=== PATIENT | male | born 1955 | race Caucasian/White ===

== ENCOUNTER 2016-08-15 12:52 | Emergency (ER) | payer OTHER ==
[2016-08-15 12:52] VITALS: BMI 25.1
[2016-08-15 13:01] VITALS: TEMP 98.1
--- NOTE | 2016-08-15 14:54 | C.PDOC ---
History Of Present Illness 61 year old male was brought to the ED by EMS with complaints of left neck, shoulder, and back pain after an unhinged door fell on him at work just prior to arrival. 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 He notes losing consciousness and being moved by EMS from the scene. Patient's PMD is Dr. Herbert and has history of HTN. Patient denies any fever or other complaints at this time. Time Seen by Provider: 08/15/16 13:08 Chief Complaint (Nursing): Back Pain History Per: Patient History/Exam Limitations: no limitations Onset/Duration Of Symptoms: Mins (just prior to arrival ) Current Symptoms Are (Timing): Still Present Quality Of Discomfort: "Pain" Previous Symptoms: None Associated Symptoms: None Recent travel outside of the [place]: No Additional History Per: EMS Past Medical History Reviewed: Historical Data, Nursing Documentation, Vital Signs Vital Signs: Last Vital Signs Temp 98.1 F 08/15/16 12:57 Pulse 69 08/15/16 18:25 Resp 15 08/15/16 18:25 BP 170/90 H 08/15/16 18:25 Pulse Ox 96 08/17/16 04:18 - Medical History PMH: HTN (doesn't remember the medications he takes) Family History: States: Unknown Family Hx - Social History Hx Alcohol Use: No Hx Substance Use: No - Immunization History Hx Tetanus Toxoid Vaccination: No Hx Influenza Vaccination: No Hx Pneumococcal Vaccination: No Review Of Systems Constitutional: Negative for: Fever, Chills, Sweats Cardiovascular: Negative for: Chest Pain, Palpitations Respiratory: Negative for: Cough, Shortness of Breath Gastrointestinal: Negative for: Nausea, Vomiting, Abdominal Pain, Diarrhea Musculoskeletal: Positive for: Neck Pain (left sided ), Shoulder Pain (left sided), Back Pain (bilateral flank pain ) Skin: Negative for: Rash, Bruising Neurological: Positive for: Headache (patient states "little bit of headache" ) Physical Exam - Physical Exam Appears: Non-toxic, No Acute Distress Skin: Warm, Dry, Other (2cm abrasion to right shoulder ) Head: Atraumatic, Normacephalic, No Tenderness, No Swelling, No Abrasion, No Laceration Eye(s): bilateral: Normal Inspection Ear(s): Bilateral: Normal, Other (No hemotympanum ) Oral Mucosa: Moist Teeth: Normal Dentition Neck: Trachea Midline, Midline Cervical Tenderness Chest: Symmetrical, No Deformity, No Tenderness Cardiovascular: Rhythm Regular, No Murmur Respiratory: Normal Breath Sounds, No Rales, No Rhonchi, No Wheezing Gastrointestinal/Abdominal: Soft, No Tenderness, No Distention, No Guarding, No Rebound Back: Normal Inspection, Paraspinal Tenderness (lumbar area bilateral) Extremity: Normal ROM, No Tenderness, No Pedal Edema, No Calf Tenderness, Capillary Refill (good cap), No Swelling Pulses: Left Femoral: Normal, Right Femoral: Normal Neurological/Psych: Oriented x3, Normal Speech, Normal Cognition, Normal Cranial Nerves, Normal Motor, Normal Sensation ED Course And Treatment O2 Sat by Pulse Oximetry: 96 (room air ) - Other Rad Lumbar Spine Three View X-Ray: Viewed By Me, Read By Radiologist Interpretation: COMPARISON: None available. TECHNIQUE: Three views of the lumbar spine were performed. FINDINGS: Moderate multilevel degenerative disc disease is noted. No acute compression fracture is seen. No obvious malalignment is noted. Degenerate facet changes are also seen in the lower lumbar spine region. No significant scoliosis is seen. Visualized sacroiliac joints reveal some mild degenerative sclerotic changes without widening or fusion. Sacral foramina are unremarkable. No presacral masses are seen. There is calcific atherosclerotic change of the aorta without aneurysmal dilatation. Posterior elements are intact. IMPRESSION: No acute compression fracture or malalignment. Degenerative disc disease. - CT Scan/US CT HEAD WO CONTRAST Other Rad Studies (CT/US): Read By Radiologist, Radiology Report Reviewed CT/US Interpretation: COMPARISON: None available. TECHNIQUE: Axial computed tomography images were obtained through the head/brain without intravenous contrast. Radiation dose: Total exam DLP = 800.77 mGy-cm. This CT exam was performed using one or more of the following dose reduction techniques: Automated exposure control, adjustment of the mA and/or kV according to patient size, and/or use of iterative reconstruction technique. FINDINGS: HEMORRHAGE: No intracranial hemorrhage. BRAIN: No mass effect or edema. Mild atrophy and mild to moderate white changes likely due to chronic microvascular ischemic disease. VENTRICLES: Unremarkable. No hydrocephalus. CALVARIUM: Unremarkable. PARANASAL SINUSES: Unremarkable as visualized. No significant inflammatory changes. MASTOID AIR CELLS: Unremarkable as visualized. No inflammatory changes. OTHER FINDINGS: None. IMPRESSION: No evidence of acute intracranial hemorrhage intracranial collection mass effect or midline shift. Mild atrophy and [id number] white matter changes likely due to chronic microvascular ischemic disease. Medical Decision Making Medical Decision Making: pt feeling much better after toradol. ct results and xray results discussed with patient. closed head injury precautions discussed with patient Disposition Counseled Patient/Family Regarding: Studies Performed, Diagnosis, Need For Followup, Rx Given - Disposition Referrals: New Herbert DO [Staff Provider] - Disposition: HOME/ ROUTINE Disposition Time: 18:11 Condition: IMPROVED Additional Instructions: Seguimiento con el Dr. Herbert en 1-2 powell. [place]ster ibuprofeno para el dolor seg n lo prescrito si es necesario. Vuelva a ER para cualquier dolor de brandee carmel, nusea, vmito, visin borrosa, asimiento, comportamiento inusual, dificultad que es despertada del sueo o cualquier otro referente a sntomas. Prescriptions: Ibuprofen [Motrin] 600 mg PO TID #30 tab Instructions: Head Injury (ED) Forms: Gen Discharge Inst Telugu, Work Excuse Print Language: SWAZI - Clinical Impression Clinical Impression: Closed head injury, Back pain due to injury - Scribe Statement The provider has reviewed the documentation as recorded by the Scribe Trisha Clark All medical record entries made by the Scribe were at my direction and personally dictated by me. I have reviewed the chart and agree that the record accurately reflects my personal performance of the history, physical exam, medical decision making, and the department course for this patient. I have also personally directed, reviewed, and agree with the discharge instructions and disposition.
--- NOTE | 2016-08-15 15:07 | RAD ---
PROCEDURE: Lumbar spine three view HISTORY: hot on back by a door COMPARISON: None available. TECHNIQUE: Three views of the lumbar spine were performed. FINDINGS: Moderate multilevel degenerative disc disease is noted. No acute compression fracture is seen. No obvious malalignment is noted. Degenerate facet changes are also seen in the lower lumbar spine region. No significant scoliosis is seen. Visualized sacroiliac joints reveal some mild degenerative sclerotic changes without widening or fusion. Sacral foramina are unremarkable. No presacral masses are seen. There is calcific atherosclerotic change of the aorta without aneurysmal dilatation. Posterior elements are intact. IMPRESSION: No acute compression fracture or malalignment. Degenerative disc disease.
--- NOTE | 2016-08-15 15:16 | CT ---
PROCEDURE: CT HEAD WITHOUT CONTRAST. HISTORY: hit in head with a door +loc COMPARISON: None available. TECHNIQUE: Axial computed tomography images were obtained through the head/brain without intravenous contrast. Radiation dose: Total exam DLP = 800.77 mGy-cm. This CT exam was performed using one or more of the following dose reduction techniques: Automated exposure control, adjustment of the mA and/or kV according to patient size, and/or use of iterative reconstruction technique. FINDINGS: HEMORRHAGE: No intracranial hemorrhage. BRAIN: No mass effect or edema. Mild atrophy and mild to moderate white changes likely due to chronic microvascular ischemic disease. VENTRICLES: Unremarkable. No hydrocephalus. CALVARIUM: Unremarkable. PARANASAL SINUSES: Unremarkable as visualized. No significant inflammatory changes. MASTOID AIR CELLS: Unremarkable as visualized. No inflammatory changes. OTHER FINDINGS: None. IMPRESSION: No evidence of acute intracranial hemorrhage intracranial collection mass effect or midline shift. Mild atrophy and [id number] white matter changes likely due to chronic microvascular ischemic disease.
--- NOTE | 2016-08-15 15:27 | CT ---
PROCEDURE: CT Cervical Spine without contrast HISTORY: Head trauma neck pain COMPARISON: None available. TECHNIQUE: Axial computed tomography images were obtained of the cervical spine without the use of intravenous contrast. Coronal and sagittal reformatted images were created and reviewed. Radiation dose: Total exam DLP = 598.89 mGy-cm. This CT exam was performed using one or more of the following dose reduction techniques: Automated exposure control, adjustment of the mA and/or kV according to patient size, and/or use of iterative reconstruction technique. FINDINGS: VERTEBRAE: No fracture. Normal alignment. No destructive bony lesion. DISCS/SPINAL CANAL/NEURAL FORAMINA: Advanced the degenerative disc changes are seen. Multilevel narrowing of the intervertebral disc spaces associated with osteophyte disc bulging complex. PARASPINAL SOFT TISSUES: Unremarkable. OTHER FINDINGS: None. IMPRESSION: No evidence of acute displaced fracture or subluxation. Advanced spondylosis. Multilevel osteophyte disc bulging complex which resulting in spinal and neural foraminal narrowing.
[2016-08-15 18:26] VITALS: BP 170/90; PULSE 69; RESP 15
[2016-08-17 04:12] VITALS: O2SAT 96
== END 2016-08-15 18:25 | disposition home or self-care (01) ==
LOC: C.ER 12:52
DX: M54.9 Dorsalgia, unspecified (principal); S09.90XA Unspecified injury of head, initial encounter; W20.8XXA Other cause of strike by thrown, projected or falling object, initial encounter; Y99.0 Civilian activity done for income or pay
CPT/HCPCS: 70450; 72100; 72125; 96372; 99283; J1885

== ENCOUNTER 2018-02-12 08:57 | Emergency (ER) | payer OTHER, MEDICARE, MEDICAID ==
[2018-02-12 09:23] VITALS: BP 166/94; PULSE 86; RESP 18; TEMP 98; O2SAT 99; BMI 22.7
--- NOTE | 2018-02-12 09:27 | C.PDOC ---
History Of Present Illness 63 y/o male pt presents to the ER c/o left ankle pain and swelling. Pt reports he slipped and fell on ice x2 days ago. Pt reports he twisted his left ankle and landed on his right side where he has a minor contusion on his right elbow. Pt notes he packs his left ankle with salt but has not taken anti-inflammatory medication. Pt denies head injury, dizziness and neck injury. Time Seen by Provider: 02/12/18 09:10 Chief Complaint (Nursing): Lower Extremity Problem/Injury History Per: Patient History/Exam Limitations: no limitations Onset/Duration Of Symptoms: Days (x2) Current Symptoms Are (Timing): Still Present - Ankle/Foot Description Of Injury: Twisted Past Medical History Reviewed: Historical Data, Nursing Documentation, Vital Signs Vital Signs: Last Vital Signs Temp 98.0 F 02/12/18 09:00 Pulse 86 02/12/18 09:00 Resp 18 02/12/18 09:00 BP 166/94 H 02/12/18 09:00 Pulse Ox 99 02/12/18 09:00 - Medical History PMH: HTN (doesn't remember the medications he takes) Family History: States: Unknown Family Hx - Social History Hx Alcohol Use: No Hx Substance Use: No - Immunization History Hx Tetanus Toxoid Vaccination: No Hx Influenza Vaccination: No Hx Pneumococcal Vaccination: No Review Of Systems Except As Marked, All Systems Reviewed And Found Negative. Constitutional: Negative for: Other (head injury ) Musculoskeletal: Positive for: Other (left ankle pain and swelling; contusion on right elbow ). Negative for: Neck Pain Neurological: Negative for: Dizziness Physical Exam - Physical Exam Appears: Toxic Skin: Warm, Dry Head: Normacephalic Eye(s): bilateral: Normal Inspection, EOMI Extremity: Normal ROM (FROM on left ankle; minimal pain ), Pedal Edema (circumferential; minor on left ankle ), No Deformity, Other (left foot normal ) Pulses: Right Radial: Normal, Left Dorsalis Pedis: Normal Neurological/Psych: Oriented x3, Normal Speech, Normal Cognition, Normal Motor, Normal Sensation ED Course And Treatment O2 Sat by Pulse Oximetry: 99 (RA) Pulse Ox Interpretation: Normal - Other Rad ankle X-Ray: Interpreted by Me (neg) Medical Decision Making Medical Decision Making: Plans: -- ibuprofen -- left ankle XR minor L ankle sprain 2 days ago STS due to packing L ankle in Salt for 2 days (??) NSAIDS/Ice educated Disposition Doctor Will See Patient In The: Office Counseled Patient/Family Regarding: Studies Performed, Diagnosis - Disposition Referrals: New Herbert DO [Staff Provider] - Disposition: HOME/ ROUTINE Disposition Time: 09:26 Condition: GOOD Additional Instructions: [place] 1/2 hora por hora, nada caliente ibuprofeno/advil/Motrin 400-600 mg cada 6 horas martin necessario Sigue con mcclure medico martin necessario [place] NEGATIVO Instructions: Ankle Sprain Forms: [employer] (Tristanian) Print Language: ARABIC - Clinical Impression Clinical Impression: Left ankle sprain - Scribe Statement The provider has reviewed the documentation as recorded by the Megan Myers Do Provider Attestation: All medical record entries made by the Scribe were at my direction and personally dictated by me. I have reviewed the chart and agree that the record accurately reflects my personal performance of the history, physical exam, medical decision making, and the department course for this patient. I have also personally directed, reviewed, and agree with the discharge instructions and disposition.
--- NOTE | 2018-02-12 10:58 | RAD ---
PROCEDURE: Left Ankle Radiographs. HISTORY: sprain 2 days ago COMPARISON: None FINDINGS: BONES: No acute displaced fracture. JOINTS: No dislocation. SOFT TISSUES: Soft tissue swelling. No evidence of radiopaque foreign body. OTHER FINDINGS: None. IMPRESSION: Soft tissue swelling. No acute displaced fracture or dislocation. If symptoms persist or if there is clinical concern, x-ray follow-up in 7-10 days should be considered.
== END 2018-02-12 09:35 | disposition home or self-care (01) ==
LOC: C.ER 08:57
DX: S93.402A Sprain of unspecified ligament of left ankle, initial encounter (principal); W00.0XXA Fall on same level due to ice and snow, initial encounter